=== PATIENT | male | born 1995 | race Caucasian/White ===

== ENCOUNTER 2018-09-02 00:20 | Emergency (ER) | payer BC, SELFPAY ==
[2018-09-02 00:22] VITALS: BP 133/76; PULSE 78; RESP 16; TEMP 36.8; O2SAT 96; BMI 40.0
[2018-09-02 00:53] LABS: Bacteria 0 SEEN /hpf (None Seen); Mucous, Urine 0 SEEN /hpf (<or=2+); Red Blood Cells-Urine 0 SEEN /hpf (0-5); Squamous Epithelial Cells - UA 0 SEEN /hpf (0-5)
[2018-09-02 01:10] LABS: Color, Urine Yellow (Yellow); Glucose, Dipstick Normal (Normal); Ketone-Dipstick Negative (Negative); Leukocyte Esterase-Dipstick 25 /ul (Negative); Nitrite-Dipstick Negative (Negative); Occult Blood-Urine 25 /ul (Negative); Protein-Dipstick 15 mg/dl (Negative); Specific Gravity, Urine 1.025 (1.002-1.030); Urine Bilirubin Dipstick Negative (Negative); Urine Clarity Clear (Clear); Urine Urobilinogen 1 mg/dl (Normal)
[2018-09-02 01:23] LABS: White Blood Cells 5-10 SEEN /hpf (0-5)
[2018-09-02 01:46] LABS: Absolute Lymphocyte Count 2.92 X10^3/ul (0.83-4.51); Absolute Neutrophil Count 5.7 X10^3/uL (2.0-7.7); Basophil# 0.04 X10^3/uL; Basophil% 0.4 % (0-1); Eosinophil# 0.13 X10^3/uL; Eosinophils% 1.3 % (0-5); Hematocrit 40.6 % (40-54); Hemoglobin 14.5 g/dl (13.0-16.5); Lymphocyte # 2.92 X10^3/ul (4.0); Lymphocyte % 29.5 % (19-41); Mean Corp Hgb Conc 35.7 g/gl (32-36); Mean Corpuscular Hgb 30.2 pg (27.0-32.0); Mean Corpuscular Volume 84.6 fL (80-94); Mean Platelet Vol. 10.9 fl (6.2-12.0); Monocyte# 1.12 X10^3/uL; Monocyte% 11.3 % (0-10); Neutrophil # 5.67 X10^3/uL (2.7-7.7); Neutrophil % 57.3 % (47-70); POSITIVE COUNT NO; POSITIVE DIFFERENTIAL NO; POSITIVE MORPHOLOGY NO; Platelet Count 238 K/mm3 (150-450); RBC Distribution Width CV 12.7 % (11.6-14.6); RBC Distribution Width SD 38.7 fl (35.1-43.9); White Blood Count 9.9 K/mm3 (4.4-11.0)
[2018-09-02 01:51] LABS: International Normalized Ratio 0.9; Prothrombin Time (Protime)PT. 12.6 SECONDS (11.7-14.9)
[2018-09-02 01:54] LABS: Anion Gap 8 (5-15); BUN 18 mg/dL (7-18); BUN/Creat Ratio 19.1 RATIO (10-20); Calcium,Total 8.8 mg/dL (8.5-10.1); Chloride 106 mmol/L (98-107); Creatinine, Serum 0.94 mg/dL (0.70-1.30); EST Glomerular Filtration Rate 108 mL/min (>60); Est Glom Filt Rate - Afr Amer 130 mL/min (>60); Estimated Creatinine Clearance 137.59 ml/min; Glucose 104 mg/dL (74-106); Potassium 3.6 mmol/L (3.5-5.1); Sodium Level 141 mmol/L (136-145)
--- NOTE | 2018-09-02 02:00 | ED.DCSUM_ITS ---
- ER Visit Summary Date of Service: 09/02/18 Chief Complaint: Blood in urine History of Present Illness: The patient is a 22 M who presents with blood in his urine. He noticed this today. He has had small clots. He also complains of dysuria. No frequency or urgency. He is able to empty his bladder does not have difficulty voiding. No systemic symptoms such as fevers chest pain shortness of breath abdominal pain nausea vomiting or diarrhea. He had one prior similar episode. He was seen in the emergency department. He was told that it may have been related to a passed kidney stone. There is a family history of kidney stones. No family history of bladder cancer. He did not have any follow-up after the emergency department visit when this happened previously. He has never seen urology. Physical Examination: Afebrile vitals normal Moist mucous membranes Heart regular rate and rhythm Lungs are clear Abdomen soft nontender Genitourinary exam is normal no blood at the urethral meatus Test Results: CBC BMP INR normal. UA shows 25 leukocyte esterase and 5-10 WBCs. Emergency Department Course and Treatment: UA consistent with possible UTI. Given that he does have lower urinary tract symptoms we will treat with Bactrim. Given that this is his second otherwise unexplained episode of gross hematuria I do feel he should follow-up with urology, he was referred to Dr. Masterson. He understands return for new or worsening symptoms. He was discharged. Treatment Plan: [] Disposition: Discharge Impression: UTI Gross hematuria This note was generated with [employer] dictation software. It may contain incorrect words, spelling, and punctuation that were not noted in review of the chart prior to signing ED Disposition - Plan for ED Patient: Chief Complaint: Complaint Referrals: Care Physician,No Primary [Primary Care Provider] -
--- NOTE | 2018-09-02 02:01 | ED.DEP ---
ED Disposition - Plan for ED Patient: Chief Complaint: Complaint Instructions: ED UTI Cystitis Male, ED Hematuria Referrals: Care Physician,No Primary [Primary Care Provider] -
--- NOTE | 2018-09-02 02:04 | ED.DEP ---
ED Disposition - Plan for ED Patient: Chief Complaint: Complaint Instructions: ED Hematuria, ED UTI Cystitis Male Prescriptions: Smz/Tmp Ds [Bactrim Ds] 1 tab PO BID #14 tab Referrals: Care Physician,No Primary [Primary Care Provider] - Adrian Masterson MD [STAFF PHYSICIAN] -
[2018-09-02 02:05] VITALS: BP 152/74; PULSE 76; O2SAT 97
--- OUTSIDE RECORDS SUMMARY | 2018-10-28 00:24 | XMS RPT_ITS ---
:1995 Author Organization [facility] Care Team Providers Name Role Phone Primay Care Physicia, No Primary Care Unavailable Jayson Jin Attending Unavailable DANAYSTACI Attending Unavailable DANAY, STACI MURDOCK Referring Unavailable NO, PHYSICIAN Primary Care Unavailable DANAY, STACI MURDOCK Attending Unavailable NO, PHYSICIAN Primary Care Unavailable PROBLEMS PROBLEMS DATE TYPE CONDITION / CODE ATTENDING STATUS SOURCE 02/10/2018 Admitting Encounter for ADNAY, Active [facility] One diagnosis administrative STACI Repository examinations, MATHIEU unspecified / Z02.9(ICD-10) 02/10/2018 Admitting Encounter for DANAY, Active [facility] Two diagnosis general adult STACI Repository medical examination MATHIEU without abnormal findings / Z00.00(ICD-10) PROCEDURES PROCEDURES No Procedure Records FoundRESULTS RESULTS DISCHARGE INSTRUCTION Observed: 09/02/2018 Status: F Source: AMJO 2:05 AM [facility] REPOSITORY [facility] Medical Records Department [address] [place] [address] Discharge Instruction 09/02/18 0204 MR#: [id number] Acct: [id number] Name: JONATHON MONK Rep #: [id number] : 1995 22 From: Jayson Jin MD PCP: Care Physician, No Primary Status: REG ER ED Disposition - Plan for ED Patient: Chief Complaint: Complaint Instructions: ED Hematuria, ED UTI Cystitis Male Prescriptions: Smz/Tmp Ds [Bactrim Ds] 1 tab PO BID #14 tab Referrals: Care Physician,No Primary [Primary Care Provider] - Adrian Masterson MD [STAFF PHYSICIAN] - What to do if you have Problems For any increased pain, shortness of breath, bleeding, nausea or vomiting, chest pain, or any unexpected problems, contact your Primary Care Provider. Call [facility] ([phone]) or report to the closest Emergency Room. Call 911 if necessary. 09/02/18204 <Electronically signed by Jayson Jin MD> Date Jayson Jin MD Cosigner Signature (If Indicated): Date CC: No Primary Care Physician DISCHARGE INSTRUCTION Observed: 09/02/2018 Status: F Source: MAJO 2:01 [facility] REPOSITORY [facility] Medical Records Department [address] [place] [address] Discharge Instruction 09/02/18200 MR#: [id number] Acct: [id number] Name: JONATHON MONK Rep #: [id number] : 1995 22 From: Jayson Jin MD PCP: John Physician, No Primary Status: REG ER ED Disposition - Plan for ED Patient: Chief Complaint: Complaint Instructions: ED UTI Cystitis Male, ED Hematuria Referrals: Care Physician,No Primary [Primary Care Provider] - What to do if you have Problems For any increased pain, shortness of breath, bleeding, nausea or vomiting, chest pain, or any unexpected problems, contact your Primary Care Provider. Call [facility] ([phone]) or report to the closest Emergency Room. Call 911 if necessary. 09/02/18200 <Electronically signed by Jayson Jin MD> Date Jayson Jin MD Cosigner Signature (If Indicated): Date CC: No Primary Care Physician EMERGENCY DEPARTMENT Observed: 09/02/2018 Status: F Source: AMES SUMMARY 2:00 AM [facility] REPOSITORY [facility] Medical Records Department [address] [place] [address] Emergency Department Summary 09/02/18 0158 MR#: [id number] Acct: [id number] Name: JONATHON MONK Rep #: [id number] : 1995 22 From: Jayson Jin MD PCP: Care Physician, No Primary Status: REG ER - ER Visit Summary Date of Service: 09/02/18 Chief Complaint: Blood in urine History of Present Illness: The patient is a 22 M who presents with blood in his urine. He noticed this today. He has had small clots. He also complains of dysuria. No frequency or urgency. He is able to empty his bladder does not have difficulty voiding. No systemic symptoms such as fevers chest pain shortness of breath abdominal pain nausea vomiting or diarrhea. He had one prior similar episode. He was seen in the emergency department. He was told that it may have been related to a passed kidney stone. There is a family history of kidney stones. No family history of bladder cancer. He did not have any follow-up after the emergency department visit when this happened previously. He has never seen urology. Physical Examination: Afebrile vitals normal Moist mucous membranes Heart regular rate and rhythm Lungs are clear Abdomen soft nontender Genitourinary exam is normal no blood at the urethral meatus Test Results: CBC BMP INR normal. UA shows 25 leukocyte esterase and 5-10 WBCs. Emergency Department Course and Treatment: UA consistent with possible UTI. Given that he does have lower urinary tract symptoms we will treat with Bactrim. Given that this is his second otherwise unexplained episode of gross hematuria I do feel he should follow-up with urology, he was referred to Dr. Masterson. He understands return for new or worsening symptoms. He was discharged. Treatment Plan: [] Disposition: Discharge Impression: UTI Gross hematuria This note was generated with [employer] dictation software. It may contain incorrect words, spelling, and punctuation that were not noted in review of the chart prior to signing ED Disposition - Plan for ED Patient: Chief Complaint: Complaint Referrals: Care Physician,No Primary [Primary Care Provider] - What to do if you have Problems For any increased pain, shortness of breath, bleeding, nausea or vomiting, chest pain, or any unexpected problems, contact your Primary Care Provider. Call [facility] ([phone]) or report to the closest Emergency Room. Call 911 if necessary. 09/02/18 0200 <Electronically signed by Jayson Jin MD> Date Jayson Jin MD Cosigner Signature (If Indicated): Date CC: No Primary Care Physician CBC W/DIFF, AUTOMATED Collected: 09/02/2018 Status: F Source: MAJO 1:34 AM [facility] REPOSITORY TYPE CODE TESTS RESULT OUT OF RANGE REFERENCE UNITS LAB L100.1000 4.4-11.0 K/mm3 Normal WBC 9.9 LAB L100.1200 4.6-6.2 M/mm3 Normal RBC 4.80 LAB L100.1300 13.0-16.5 g/dl Normal HGB 14.5 LAB L100.1400 40-54 % Normal HCT 40.6 LAB L100.1500 80-94 fL Normal MCV 84.6 LAB L100.1600 27.0-32.0 pg Normal MCH 30.2 LAB L100.1700 32-36 g/gl Normal MCHC 35.7 LAB L100.1810 11.6-14.6 % Normal RDW CV 12.7 LAB L100.1820 35.1-43.9 fl Normal RDW SD 38.7 LAB L100.1900 150-450 K/mm3 Normal PLT 238 LAB L100.2000 6.2-12.0 fl Normal MPV 10.9 LAB L100.2100 47-70 % Normal NEUT% 57.3 LAB L100.2200 19-41 % Normal LY% 29.5 LAB L100.2300 0-10 % High MONO% 11.3 LAB L100.2400 0-5 % Normal EO% 1.3 LAB L100.2500 0-1 % Normal BASO% 0.4 LAB L100.2550 0.0-0.9 % Normal IM GRAN % 0.200 Result Comment: IG% - Immature Granulocytes (promyelocytes, myelocytes and metamyelocytes) > 1% indicates that a LEFT SHIFT is Present. LAB L100.2620 2.0-7.7 X10 3/uL Normal Absolute Neut 5.7 LAB L100.2720 0.83-4.51 X10 3/ul Normal Absolute Lymph 2.92 Performed By: #### L100.0100 #### [facility] [address] [place], [place], [address] PROTHROMBIN TIME W/INR Collected: 09/02/2018 Status: F Source: AMES 1:34 AM [facility] REPOSITORY TYPE CODE TESTS RESULT OUT OF RANGE REFERENCE UNITS LAB L300.4150 11.7-14.9 SECONDS Normal PROTIME 12.6 LAB L300.4200 Normal INR 0.9 Performed By: #### L300.3900 #### [facility] [address] [place], [address] BASIC METABOLIC Collected: 09/02/2018 Status: F Source: AMES PROFILE (BMP) 1:34 AM [facility] REPOSITORY TYPE CODE TESTS RESULT OUT OF RANGE REFERENCE UNITS LAB L501.0100 74-106 mg/dL Normal GLU 104 Result Comment: Fasting Glucose result from 100 to 125 mg/dL suggests IMPAIRED HOMEOSTASIS per A.D.A. criteria. Please note revised GLUCOSE reference range effective 2017. LAB L501.1000 7-18 mg/dL Normal BUN 18 LAB L501.1100 0.70-1.30 mg/dL Normal CREAT,SERUM 0.94 Result Comment: The validity of the calculated GFR AND GFRAA in patients over 70 years has not been determined. Clinical correlation is essential. LAB L501.1110 >60 mL/min Normal EST GFR 108 Result Comment: Non- GFR Calc LAB L501.1115 >60 mL/min Normal EST GFR - AA 130 Result Comment: GFR Calc LAB L501.1255 ml/min Normal Estimated CRCL 137.59 LAB L501.1300 10-20 RATIO BUN/CRE Normal 19.1 LAB L501.2200 8.5-10 mg/dL .1 CA Normal 8.8 LAB L501.5300 136-14 mmol/L 5 NA Normal 141 LAB L501.5600 3.5-5. mmol/L 1 K Normal 3.6 LAB L501.5900 98-107 mmol/L CL Normal 106 LAB L501.6100 21.0-3 mmol/L 2.0 CO2 Normal 27.0 LAB L501.6200 5-15 GAP Normal 8 Performed By: #### L500.2500 #### [facility] [address] [place], [address] URINALYSIS, COMPLETE Collected: 09/02/2018 Status: F Source: AMES 12:49 AM [facility] REPOSITORY Order Comment: Order Date: 09/02/18 How was Urine Obtained? CLEAN CATCH TYPE CODE TESTS RESULT OUT OF RANGE REFERENCE UNITS LAB L400.3000 Yellow COLOR Normal Yellow LAB L400.3050 Clear Normal CLARITY Clear LAB L400.3200 Normal mg/dl Normal GLUCOSE, UR Normal LAB L400.3300 Negative mg/dL Normal BILIRUBIN URINE Negative LAB L400.3400 Negative mg/dl Normal KETONE UR Negative LAB L400.3465 1.002-1.030 Normal SP.GR. DIPSTX 1.025 LAB L400.3550 5.0 - 8.0 pH UR Normal 6.0 LAB L400.3600 Negative mg/dl High PROT 15 DIPSTX LAB L400.3700 Normal mg/dl High 1 UROBILI LAB L400.3750 Negative Normal NITRITE UR Negative LAB L400.3780 Negative /ul High 25 OCCULT BLOOD-UR LAB L400.3800 Negative /ul High LEUK 25 ESTERASE LAB L400.4050 0-5 /hpf WBC Normal 5-10 SEEN LAB L400.4100 0-5 /hpf 0 Normal RBC-UA SEEN LAB L400.4150 0-5 /hpf SQUAM 0 Normal EPI SEEN LAB L400.4300 None Seen /hpf 0 Normal BACTERIA SEEN LAB L400.4350 <or=2+ /hpf 0 Normal MUCUS, URINE SEEN Performed By: #### L400.0001 #### [facility] [place], [address] XR CHEST AP/PA AND Observed: 02/10/2018 Status: F Source: [facility] 4:17 PM REPOSITORY Order Comment: Reason for exam?:physical no sx's Injury/Trauma or Illness?:Illness/Other How long have you had these symptoms (acute/chronic)?:Acute History of cancer?:na Surgeries, chemotherapy, or radiation?:na Type of Exam?:Initial Additional signs and symptoms?:as above EXAMINATION: TWO VIEWS OF THE CHEST 02/10/2018 4:18 pm COMPARISON: 02/18/2017 HISTORY: ORDERING SYSTEM PROVIDED HISTORY: Routine general medical examination at a health care facility; TECHNOLOGIST PROVIDED HISTORY: Reason for Exam: physical no sx's Illness/Other Acuity: Acute Type of Encounter: Initial Additional signs and symptoms: as above ORDERING SYSTEM PROVIDED DIAGNOSIS CODES: Z00.00 Routine general medical examination at a health care facility FINDINGS: Heart size is within normal limits. No focal consolidation. No significant pleural effusion. No radiographic evidence of pneumothorax. IMPRESSION: 1. No focal airspace disease. Workstation ID: [id number] Dictated by: SHERWIN ANDERSON on WedFebruary 10, 2018 8:40:38 PM EDT Transcribed by: SHERWIN ANDERSON on WedFebruary 10, 2018 8:40:38 PM EDT Finalized by: SHERWIN ANDERSON on WedFebruary 10, 2018 8:40:38 PM EDT ALLERGIES ALLERGIES DATE TYPE / CODE NAME / CODE REACTION SEVERITY SOURCE 09/02/2018 Drug No Known Unknown [facility] Allergy/4160 Allergies/F00 [facility] [address](SNOMED [id number](RXNOR Repository CT) M) ENCOUNTERS ENCOUNTERS ADMIT/DISCHARGE ACCOUNT NUMBER ADMITTING ENCOUNTER LOCATION SOURCE CLASS 09/02/2018/09/02/20 [id number] Emergency [address] ding:ED Repository 02/10/2018/02/11/20 [id number] Ambulatory Building:LAB [place] [address] [address] Repository 02/10/2018/02/11/20 [id number] Ambulatory Building:[facility] [place] [address] [address] Repository PAYERS PAYERS ENCOUNTER GUARANTOR PAYER SUBSCRIBER SOURCE 09/02/2018 JONATHON Maya Primary ABUNDIO Godwin [id number] Insurance:[facility] MAVIS [facility] [address] Number: [place], [place] [id number] Repository [address]xu: [phone]) Date:[id number] [phone] () [id number], [place] [address]HM: 09/02/2018 Secondary NOT GIVENUNK Majo Insurance:SELF PAY [facility] Number: Effective Repository Date:2018-09-02
== END 2018-09-02 02:06 | disposition home or self-care (01) ==
PROVIDERS: Emergency Provider Emergency Medicine
DX: N39.0 Urinary tract infection, site not specified (principal); R31.0 Gross hematuria
CPT/HCPCS: 80048; 81001; 85025; 85610; 99282

== ENCOUNTER 2018-10-29 01:28 | Emergency (ER) | payer BC, SELFPAY ==
[2018-10-29 01:30] VITALS: BP 147/112; PULSE 133; RESP 18; TEMP 37.2; O2SAT 96; BMI 41.3
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
--- NOTE | 2018-10-29 02:57 | ED.DEP ---
ED Disposition - Plan for ED Patient: Chief Complaint: Trauma Instructions: ED Head Injury Closed, ED Fx Nasal Conf W X Ray Prescriptions: Hydrocodone Bitart/Apap 5-325 [[place] 5MG-325MG] 1 tab PO Q6H PRN PRN 3 Days #12 tab PRN Reason: Pain Referrals: Care Physician,No Primary [Primary Care Provider] - Zoran Phelan MD [STAFF PHYSICIAN] -
--- NOTE | 2018-10-29 03:00 | DCINST.ED_ITS ---
ED Disposition - Plan for ED Patient: Chief Complaint: Trauma Instructions: ED Head Injury Closed, ED Fx Nasal Conf W X Ray Prescriptions: Hydrocodone Bitart/Apap 5-325 [[place] 5MG-325MG] 1 tab PO Q6H PRN PRN 3 Days #12 tab PRN Reason: Pain Referrals: Care Physician,No Primary [Primary Care Provider] - Zoran Phelan MD [STAFF PHYSICIAN] -
[2018-10-29 03:05] VITALS: BP 125/66; PULSE 104; O2SAT 97
== END 2018-10-29 03:06 | disposition home or self-care (01) ==
PROVIDERS: Emergency Provider Emergency Medicine
DX: S02.2XXA Fracture of nasal bones, initial encounter for closed fracture (principal); S02.40DA Maxillary fracture, left side, initial encounter for closed fracture; R04.0 Epistaxis; S00.01XA Abrasion of scalp, initial encounter; Y04.2XXA Assault by strike against or bumped into by another person, initial encounter; Y93.9 Activity, unspecified; Y92.9 Unspecified place or not applicable; Y99.9 Unspecified external cause status
CPT/HCPCS: 70450; 70486; 99281